=== PATIENT | male | born 1970 | race Caucasian/White ===

== ENCOUNTER 2025-04-10 16:19 | Emergency (ER) | payer OTHER, MEDICARE, MEDICAID | END 2025-04-10 18:35 | disposition home or self-care (01) | LOC: VM.ED 16:19 | DX: S16.1XXA Strain of muscle, fascia and tendon at neck level, initial encounter (principal); Z91.018 Allergy to other foods; Z91.048 Other nonmedicinal substance allergy status; Z79.899 Other long term (current) drug therapy; V49.49XA Driver injured in collision with other motor vehicles in traffic accident, initial encounter; Y93.89 Activity, other specified | CPT/HCPCS: 72125; 99283; 99284; A9270-GY ==